=== PATIENT | female | born 1945 | race Caucasian/White ===

== ENCOUNTER 2016-11-23 01:21 | Inpatient (IN) | payer OTHER ==
[~2016-11-23] VITALS: Ht 165.1 cm; Wt 77.7 kg
[~2016-11-23 01:21] MED LIST: AMLO-511 PO; LISI-660 PO; PRAV20TA4 PO
[2016-11-23 02:17] LABS: BASOPHILS % (AUTO) 0.3 % (0.0-2.0); EOSINOPHILS % (AUTO) 1.4 % (1.0-6.0); HEMATOCRIT 41.1 % (36-46); HEMOGLOBIN 13.2 g/dL (12.0-16.0); LYMPHOCYTES # (AUTO) 1.9 K/uL (1.0-4.8); LYMPHOCYTES % (AUTO) 17.3 % (22.0-44.0); MEAN CORPUSCULAR HEMOGLOBIN 26.2 pg (26.0-34.0); MEAN CORPUSCULAR HGB CONC 32.1 G/dL (31.0-37.0); MEAN CORPUSCULAR VOLUME 82 fL (80-100); MONOCYTES # (AUTO) 0.7 K/uL (0.1-1.0); MONOCYTES % (AUTO) 6.1 % (2.0-9.0); NEUTROPHILS # (AUTO) 8.3 K/uL (1.8-7.7); NEUTROPHILS % (AUTO) 74.9 % (40.0-70.0); PLATELET COUNT (AUTO) 207 K/uL (150-450); RED BLOOD CELL COUNT(AUTO) 5.04 MIL/uL (4.00-5.20); RED CELL DISTRIBUTION WIDTH 15.2 % (11.5-14.5)
[2016-11-23 02:27] LABS: CALCIUM, TOTAL 9.1 mg/dL (8.8-10.5); CREATININE 0.95 mg/dL (0.60-1.30); POTASSIUM 4.1 mmol/L (3.5-5.1)
[2016-11-23] MEDS ORDERED: ONDANSETRON HCL 4 MG/2 ML VIAL IVP ONE (02:30)
[2016-11-23] MEDS ORDERED: SODIUM CHLORIDE 0.9% 1,000 ML IV ONE ×2 (02:30→08:30)
[2016-11-23] MEDS ORDERED: HYDROmorphone 2 MG/ML SYRINGE IVP ONE (02:30)
[2016-11-23 02:35] LABS: LACTIC ACID 0.8 mmol/L (0.4-2.0)
[2016-11-23 02:38] LABS: ALBUMIN 3.8 g/dL (3.4-5.0); BILIRUBIN,TOTAL 0.4 mg/dL (0.1-1.0); TOTAL PROTEIN, SERUM 7.9 g/dL (6.4-8.2)
[2016-11-23] MEDS ORDERED: BARIUM SULFATE 0.1% SUSPENSION 450 ML BOTTLE PO ONE (02:45)
[2016-11-23] MEDS ORDERED: SODIUM CHLORIDE 0.9% 100 ML ONE (04:02)
[2016-11-23] MEDS ORDERED: IOVERSOL 350 MG/ML 100 ML VIAL ONE (04:02)
[2016-11-23 04:53] LABS: APPEARANCE,URINE CLOUDY (CLEAR); GLUCOSE, URINE (UA) NEGATIVE (NEGATIVE); KETONES,URINE NEGATIVE (NEGATIVE); LEUKOCYTE ESTERASE ,URINE NEGATIVE (NEGATIVE); OCCULT BLOOD,URINE TRACE (NEGATIVE); PROTEIN,URINE NEGATIVE (NEGATIVE)
[2016-11-23 05:30] LABS: SQUAMOUS EPITHELIAL CELL,UR Rare /LPF (None Seen)
[2016-11-23] MEDS ORDERED: HYDROmorphone 2 MG/ML SYRINGE IVP PRN ×2 (08:30→16:00)
[2016-11-23] MEDS ORDERED: ONDANSETRON HCL 4 MG/2 ML VIAL IVP PRN ×2 (08:30→16:00)
[2016-11-23] MEDS ORDERED: 0.9% SODIUM CHLORIDE 10 ML SYRINGE IVP PRN (08:30)
[2016-11-23 10:09] VITALS: BP 137/68
[2016-11-23] MEDS ORDERED: ACETAMINOPHEN 325 MG TABLET PO PRN (10:15)
[2016-11-23] MEDS ORDERED: POTASSIUM CHL 10 MEQ/WATER 50 ML IV PRN (10:30)
[2016-11-23] MEDS ORDERED: INSULIN ASPART 100 UNITS/ML SQ PRN (10:30)
[2016-11-23] MEDS ORDERED: POTASSIUM CHLORIDE 20 MEQ ER TABLET PO PRN (10:30)
[2016-11-23] MEDS ORDERED: CefTRIAXone 1 GM/DEXTROSE 50 ML IV ONE (10:30)
[2016-11-23] MEDS ORDERED: DEXTROSE 50%-WATER 25 GM/50 ML SYRINGE IVP PRN (10:30)
[2016-11-23 11:34] VITALS: BP 133/65
[2016-11-23] MEDS: DEXTROSE 5%-0.45% SODIUM CHL 1,000 ML IV SCH (11:42)
[2016-11-23 12:07] LABS: GLUCOSE,POINT OF CARE 90 MG/DL (70-110)
[2016-11-23 15:20] VITALS: BP 139/64
[2016-11-23] MEDS: HEPARIN SODIUM,PORCINE 5,000 UNITS/ML VIAL SQ SCH ×2 (15:57→23:30)
[2016-11-23 18:11] LABS: GLUCOSE,POINT OF CARE 92 MG/DL (70-110)
[2016-11-23 19:55] VITALS: BP 148/68
[2016-11-23] MEDS: DOCUSATE SODIUM 100 MG CAPSULE PO SCH (20:48)
[2016-11-23 22:37] LABS: GLUCOSE,POINT OF CARE 100 MG/DL (70-110)
[2016-11-23 23:17] VITALS: BP 139/55
[2016-11-24 05:00] VITALS: BP 135/62
[2016-11-24 06:59] LABS: BASOPHILS # (AUTO) 0.03 K/uL (0.00-0.20); BASOPHILS % (AUTO) 0.5 % (0.0-2.0); EOSINOPHILS # (AUTO) 0.22 K/uL (0.00-0.70); EOSINOPHILS % (AUTO) 3.53 % (1.0-6.0); HEMATOCRIT 37.8 % (36-46); HEMOGLOBIN 12.4 g/dL (12.0-16.0); LYMPHOCYTES % (AUTO) 31.5 % (22.0-44.0); MEAN CORPUSCULAR HEMOGLOBIN 26.8 pg (26.0-34.0); MEAN CORPUSCULAR HGB CONC 32.8 G/dL (31.0-37.0); MEAN CORPUSCULAR VOLUME 82 fL (80-100); MONOCYTES # (AUTO) 0.5 K/uL (0.1-1.0); NEUTROPHILS # (AUTO) 3.6 K/uL (1.8-7.7); NEUTROPHILS % (AUTO) 56.6 % (40.0-70.0); PLATELET COUNT (AUTO) 169 K/uL (150-450); RED BLOOD CELL COUNT(AUTO) 4.62 MIL/uL (4.00-5.20); RED CELL DISTRIBUTION WIDTH 15.1 % (11.5-14.5); WHITE BLOOD COUNT (AUTO) 6.3 K/uL (4.5-11.0)
[2016-11-24 07:04] LABS: ALANINE AMINOTRANSFERASE 28 U/L (12-78); ALBUMIN 3.2 g/dL (3.4-5.0); ANION GAP 8 mmol/L (8-16); ASPARTATE AMINOTRANSFERASE 19 U/L (15-37); BILIRUBIN,TOTAL 0.4 mg/dL (0.1-1.0); CALCIUM, TOTAL 8.7 mg/dL (8.8-10.5); CARBON DIOXIDE 29 mmol/L (22-29); CHLORIDE 104 mmol/L (98-107); CREATININE 0.75 mg/dL (0.60-1.30); GLOMERULAR FILTR. RATE CALC > 60 mL/min (>60); POTASSIUM 3.6 mmol/L (3.5-5.1); SODIUM SERUM 141 mmol/L (136-145); UREA NITROGEN, BLOOD 9 mg/dL (7-18)
[2016-11-24 07:17] LABS: GLUCOSE,POINT OF CARE 98 MG/DL (70-110)
[2016-11-24 07:29] VITALS: BP 151/74
[2016-11-24] MEDS: DOCUSATE SODIUM 100 MG CAPSULE PO SCH ×2 (08:15→19:53)
[2016-11-24] MEDS: HEPARIN SODIUM,PORCINE 5,000 UNITS/ML VIAL SQ SCH ×2 (08:15→16:19)
[2016-11-24] MEDS: PANTOPRAZOLE SODIUM 40 MG/VIAL IVP SCH (08:15)
[2016-11-24] MEDS: DEXTROSE 5%-0.45% SODIUM CHL 1,000 ML IV SCH (08:44)
[2016-11-24 11:41] VITALS: BP 148/64
[2016-11-24 12:22] LABS: GLUCOSE,POINT OF CARE 89 MG/DL (70-110)
[2016-11-24 16:12] VITALS: BP 141/72
[2016-11-24 20:19] VITALS: BP 148/62
[2016-11-24 23:16] VITALS: BP 156/69
[2016-11-25] MEDS: HEPARIN SODIUM,PORCINE 5,000 UNITS/ML VIAL SQ SCH ×4 (00:01→23:45)
[2016-11-25 04:21] VITALS: BP 148/74
[2016-11-25 07:59] VITALS: BP 151/70
[2016-11-25] MEDS: DOCUSATE SODIUM 100 MG CAPSULE PO SCH ×2 (09:01→20:17)
[2016-11-25] MEDS: PANTOPRAZOLE SODIUM 40 MG/VIAL IVP SCH (09:01)
[2016-11-25] MEDS: DEXTROSE 5%-0.45% SODIUM CHL 1,000 ML IV SCH (09:11)
[2016-11-25 11:59] VITALS: BP 175/80
[2016-11-25 15:57] VITALS: BP 153/81
[2016-11-25 21:12] VITALS: BP 143/61
[2016-11-26] VITALS: BP 133/67
[2016-11-26 04:12] VITALS: BP 137/59
[2016-11-26 07:45] VITALS: BP 137/79
[2016-11-26 11:39] VITALS: BP 145/63
[2016-11-26] MEDS ORDERED: FAMO20 PO (13:37)
[2016-11-26] MEDS ORDERED: SIME120L PO (13:42)
[2016-11-26] MEDS ORDERED: ONDA4 PO (13:43)
[2016-11-26] MEDS ORDERED: ACET1TAB12 PO (13:49)
== END 2016-11-26 14:12 | disposition home or self-care (01) | DRG 389 ==
LOC: EMS 01:22 → 6N 08:46
PROVIDERS: ADMIT Internal Medicine; ATTEND Internal Medicine
DX: K56.60 Unspecified intestinal obstruction (principal); N39.0 Urinary tract infection, site not specified; E11.9 Type 2 diabetes mellitus without complications; B96.20 Unspecified Escherichia coli [E. coli] as the cause of diseases classified elsewhere; I10 Essential (primary) hypertension; E66.01 Morbid (severe) obesity due to excess calories; E78.00 Pure hypercholesterolemia, unspecified; Z88.0 Allergy status to penicillin; Z79.899 Other long term (current) drug therapy; Z90.49 Acquired absence of other specified parts of digestive tract; Z93.1 Gastrostomy status
CPT/HCPCS: 74000; 74177; 82962; 83605; 87081; 87086; 93005; 96361; 96374; 96375; 99285; C9113; J0696; J1170; J1644; J2405; J7030; J7050

== ENCOUNTER 2019-02-18 12:30 | Emergency (ER) | payer MEDICARE, MEDICAID ==
[~2019-02-18] VITALS: Ht 165.1 cm; Wt 84.1 kg
[~2019-02-18 12:30] MED LIST changes: +ACET1TAB12 PO; -AMLO-511 PO; +AMLO5TAB9 PO; +FAMO20 PO; -LISI-660 PO; +ONDA4 PO; +SIME120L PO
[2019-02-18 15:28] VITALS: BP 145/62
== END 2019-02-18 16:56 | disposition home or self-care (01) ==
LOC: EMS 12:31
DX: S90.122A Contusion of left lesser toe(s) without damage to nail, initial encounter (principal); I10 Essential (primary) hypertension; E78.00 Pure hypercholesterolemia, unspecified; Z88.0 Allergy status to penicillin; W20.8XXA Other cause of strike by thrown, projected or falling object, initial encounter; Y93.89 Activity, other specified; Y92.89 Other specified places as the place of occurrence of the external cause; Y99.8 Other external cause status